=== PATIENT | female | born 1980 | race Caucasian/White ===

== ENCOUNTER 2017-01-16 18:24 | Emergency (ER) | payer OTHER ==
[2017-01-16 18:40] VITALS: BP 121/80
--- NOTE | 2017-01-16 18:45 | UC ---
Complaint Female HPI - HPI Summary HPI Summary: 36 year old female present for a test and vaginal bleeding. - History Of Current Complaint Chief Complaint: UCGU Stated Complaint: TESTING Time Seen by Provider: 01/16/17 18:45 Hx Obtained From: Patient Hx Last Menstrual Period: 12/26/16 Onset/Duration: Sudden Onset Severity Initially: Moderate Severity Currently: Moderate Pain Scale Used: 0-10 Numeric - 5 - Allergies/Home Medications Allergies/Adverse Reactions: Allergies Allergy/AdvReac Type Severity Reaction Status Date / Time No Known Allergies Allergy Verified 01/16/17 18:40 Home Medications: Home Medications Escitalopram Oxalate [Lexapro 20 mg] 20 mg PO DAILY 01/16/17 [History Confirmed 01/16/17] Naproxen Sodium [Naproxen Sodium 220 mg] 220 mg PO PRN 01/16/17 [History] PMH/Surg Hx/FS Hx/Imm Hx Previously Healthy: Yes - Surgical History Surgical History: None - Social History Alcohol Use: Weekly Substance Use Type: Marijuana Substance Use Comment - Amount & Last Used: occ usage Smoking Status (MU): Never Smoked Tobacco Review of Systems Constitutional: Negative Skin: Negative Eyes: Negative ENT: Negative Respiratory: Negative Cardiovascular: Negative Gastrointestinal: Negative Genitourinary: Abnormal Bleeding Motor: Negative Neurovascular: Negative Musculoskeletal: Negative Neurological: Negative Psychological: Negative All Other Systems Reviewed And Are Negative: Yes Physical Exam Triage Information Reviewed: Yes Vital Signs: Initial Vital Signs Temp 36.9 C 01/16/17 18:35 Pulse 79 01/16/17 18:35 Resp 14 01/16/17 18:35 BP 121/80 01/16/17 18:35 Pulse Ox 100 01/16/17 18:35 Eye Exam: Normal ENT Exam: Normal Dental Exam: Normal Neck exam: Normal Neck: Positive: 1 Respiratory Exam: Normal Cardiovascular Exam: Normal Abdominal Exam: Normal Musculoskeletal Exam: Normal Neurological Exam: Normal Psychological Exam: Normal Skin Exam: Normal Complaint Female Dx - Differential Dx/Diagnosis Provider Diagnoses: vaginal bleeding Discharge - Discharge Plan Condition: Stable Disposition: HOME Patient Education Materials: Ectopic (ED), Threatened Miscarriage (ED ), (ED) Referrals: No Primary Care Phys,NOPCP [Medical Doctor] -
== END 2017-01-16 19:07 | disposition home or self-care (01) ==
LOC: UCEAST 18:24
DX: N93.9 Abnormal uterine and vaginal bleeding, unspecified (principal); Z32.02 Encounter for pregnancy test, result negative
CPT/HCPCS: 81003; 84702; 99211; G0463

== ENCOUNTER 2017-06-24 08:51 | Emergency (ER) | payer OTHER ==
[2017-06-24 08:59] VITALS: BP 116/81
--- NOTE | 2017-06-24 10:20 | RAD ---
Indication: LEFT shoulder pain post fall yesterday. Comparison: June 03, 2014 chest radiograph. Technique: Internal rotation AP, external rotation Grashey, scapular Y, axillary views LEFT shoulder Report: Normal acromioclavicular and glenohumeral joint alignment. Negative for fracture. Preserved joint spaces. No compelling arthropathic change evident. Unremarkable soft tissue contours. IMPRESSION: No radiographic evidence for traumatic LEFT shoulder injury.
[2017-06-24] MEDS ORDERED: Naproxen TAB* 250 MG PO ONE (10:35)
--- NOTE | 2017-06-24 14:25 | UC ---
Lucas Escobedo Jennifer, scribed for Nikkie Fontanez MD on 06/24/17 at 1016 . Upper Extremity HPI - HPI Summary HPI Summary: The patient is a 37 year old female who presents with left shoulder pain that began yesterday. The patient reports she was kneeling when her son came to give her a tackle hug and she fell backwards onto her shoulder. The patient states she feels like she can move the shoulder in all directions. However, movement aggravates the pain. The pain is mostly concentrated in the front of the shoulder. Mild dysesthesia L fingers. - History of Current Complaint Chief Complaint: UCUpperExtremity Stated Complaint: SHOULDER INJURY Time Seen by Provider: 06/24/17 09:36 Hx Obtained From: Patient Hx Last Menstrual Period: iud Onset/Duration: Sudden Onset, Lasting Days - 1 day, Still Present Severity Initially: Moderate Severity Currently: Moderate Pain Intensity: 5 Pain Scale Used: 0-10 Numeric Location Of Pain: Is Discrete @ - left shoulder Aggravating Factor(s): Movement Alleviating Factor(s): Nothing Associated Signs And Symptoms: Positive: Numbness/Tingling - Left fingers - Allergies/Home Medications Allergies/Adverse Reactions: Allergies Allergy/AdvReac Type Severity Reaction Status Date / Time No Known Allergies Allergy Verified 06/24/17 08:58 PMH/Surg Hx/FS Hx/Imm Hx Previously Healthy: Yes - NEG: HTN, DM - Surgical History Surgical History: None - Family History Known Family History: Negative: Hypertension, Diabetes - Social History Alcohol Use: Weekly Substance Use Type: Marijuana Substance Use Comment - Amount & Last Used: occ usage Smoking Status (MU): Light Every Day Tobacco Smoker Review of Systems Constitutional: Negative Skin: Negative Eyes: Negative ENT: Negative Respiratory: Negative Cardiovascular: Negative Gastrointestinal: Negative Genitourinary: Negative Motor: Other - see hpi Neurovascular: Other - see hpi Musculoskeletal: Other: - Left shoulder pain see hpi Neurological: Other - see hpi All Other Systems Reviewed And Are Negative: Yes Physical Exam - Summary Physical Exam Summary: Appearance: Well-Nourished Eye Exam: Normal ENT Exam: Normal Respiratory Exam: Normal, no dyspnea, no tachypnea, normal respiratory rate Cardiovascular Exam: Normal Cardiovascular: Heart rate regular, good general skin color, good capillary refill Abdominal Exam: Normal Abdomen Description: Nontender, No Organomegaly, Soft Bowel Sounds: Present Musculoskeletal Exam: see below Neurological Exam: Normal: nonfocal, grossly intact Psychological Exam: Normal: conversing easily and appropriately Skin Exam: Normal: no visible or reported rash Triage Information Reviewed: Yes Vital Signs: Initial Vital Signs Temp 98.8 F 06/24/17 08:55 Pulse 104 06/24/17 08:55 Resp 18 06/24/17 08:55 BP 116/81 06/24/17 08:55 Pulse Ox 99 06/24/17 08:55 Vital Signs Reviewed: Yes Musculoskeletal Exam: Other - L ant shoulder tenderness, over the ac region, but general tenderness ant / post. + Ax N sensation present. Distal R/U pulse present. CR < 2 sec x 5 digits. Distal sensation LT present x 5 digits. Color good. Subjective tingling fingers during examination, improved with elevation. Able to move shoulder in all directions, but painful varinder with flexion past 90 degrees. Diagnostics - Radiology Shoulder XR Xray Interpretation: No Acute Changes - No radiographic evidence for traumatic LEFT shoulder injury. Dr. Fontanez has reviewed this report. Radiology Interpretation Completed By: Radiologist Re-Evaluation - Re-Evaluation First Eval Re-Evaluation Time: 10:33 Change: Unchanged Comment: The patient declined Naproxen. Upper Extremity Course/Dx - Course Course Of Treatment: Reviewed L shoulder xray with Ms. Humphrey. (No acute osseus injury, see [employer] report). Sling for comfort. She will f/u with orthopedist if sx no better by the end of this week, may need further imaging. Declines rx naproxen, but would appreciate naproxen here. - Differential Dx/Diagnosis Provider Diagnoses: Left shoulder injury, suspect ligament and / or tendon. Discharge - Discharge Plan Condition: Stable Disposition: HOME Patient Education Materials: Shoulder Sprain (ED), Arthralgia (ED) Referrals: Silvia Mendenhall MD [Primary Care Provider] - Jeremi Hutson MD [Medical Doctor] - Additional Instructions: Please follow up with your primary care provider, per routine. Orthopedic surgeon - 1-2 weeks. Sling as needed for comfort. Consider alleve as needed for pain / inflammation. Especially over the next 2-3 days. Seek medical attention for worse or new problems in the meantime. The documentation as recorded by the Lucas lopez Jennifer accurately reflects the service I personally performed and the decisions made by , Nikkie Fontanez MD.
== END 2017-06-24 10:41 | disposition home or self-care (01) ==
LOC: UCEAST 08:51
DX: S49.92XA Unspecified injury of left shoulder and upper arm, initial encounter (principal); W19.XXXA Unspecified fall, initial encounter; Y93.89 Activity, other specified; Y92.9 Unspecified place or not applicable; F17.200 Nicotine dependence, unspecified, uncomplicated
CPT/HCPCS: 99213; A9270-GY; G0463

== ENCOUNTER 2017-07-05 11:19 | Emergency (ER) | payer OTHER ==
[2017-07-05 11:28] VITALS: BP 111/76
--- NOTE | 2017-07-05 12:02 | UC ---
Throat Pain/Nasal [place] HPI - History of Current Complaint Hx Obtained From: Patient Hx Last Menstrual Period: iud ?: No Onset/Duration: Gradual Onset - started [address], body aches and fever. today sore throat worse and has swollen glands on neck Severity: Moderate Pain Intensity: 8 Associated Signs & Symptoms: Positive: Fever. Negative: Sinus Discomfort, Vomiting <Julianna Calvillo - Last Filed: 07/05/17 12:06> <Elida Bar - Last Filed: 07/05/17 12:54> - History of Current Complaint Chief Complaint: UCRespiratory Stated Complaint: FEVER,SORE THROAT Time Seen by Provider: 07/05/17 11:26 - Allergies/Home Medications Allergies/Adverse Reactions: Allergies Allergy/AdvReac Type Severity Reaction Status Date / Time No Known Allergies Allergy Verified 07/05/17 11:28 Home Medications: Home Medications Acetaminophen [Acetaminophen Extra Strength] 500 mg PO 07/05/17 [History] PMH/Surg Hx/FS Hx/Imm Hx Previously Healthy: Yes Psychological History: Depression - Surgical History Surgical History: None - Family History Known Family History: Negative: Hypertension, Diabetes - Social History Occupation: Employed Full-time Lives: With Family Alcohol Use: Weekly Substance Use Type: Marijuana Substance Use Comment - Amount & Last Used: occ usage Smoking Status (MU): Light Every Day Tobacco Smoker Cessation Counseling: Patient Advised to Stop <Julianna Calvillo - Last Filed: 07/05/17 12:06> Review of Systems Constitutional: Fever Skin: Negative Eyes: Negative ENT: Sore Throat Respiratory: Negative Cardiovascular: Negative Gastrointestinal: Negative All Other Systems Reviewed And Are Negative: Yes <Julianna Calvillo - Last Filed: 07/05/17 12:06> Physical Exam Triage Information Reviewed: Yes Appearance: Well-Appearing, No Pain Distress, Well-Nourished Vital Signs: Initial Vital Signs Temp 97.9 F 07/05/17 11:25 Pulse 79 07/05/17 11:25 Resp 18 07/05/17 11:25 BP 111/76 07/05/17 11:25 Pulse Ox 100 07/05/17 11:25 Vital Signs Reviewed: Yes ENT: Positive: Pharyngeal erythema, TMs normal. Negative: Nasal congestion, Sinus tenderness Neck: Positive: Enlarged Nodes @ - bilateral ant cervical Respiratory Exam: Normal Respiratory: Positive: Lungs clear Cardiovascular Exam: Normal Neurological Exam: Normal Psychological Exam: Normal Skin Exam: Normal Skin: Negative: rashes <Juilanna Calvillo - Last Filed: 07/05/17 12:06> Vital Signs: Initial Vital Signs Temp 97.9 F 07/05/17 11:25 Pulse 79 07/05/17 11:25 Resp 18 07/05/17 11:25 BP 111/76 07/05/17 11:25 Pulse Ox 100 07/05/17 11:25 <Elida Bar - Last Filed: 07/05/17 12:54> Throat Pain/Nasal Course/Dx - Differential Dx/Diagnosis Differential Diagnosis/HQI/PQRI: Influenza, Laryngitis, Pharyngitis, Sinusitis, Tonsillitis, URI Provider Diagnoses: strep throat <Julianna Calvillo - Last Filed: 07/05/17 12:06> Discharge - Sign-Out/Discharge Documenting (check all that apply): Discharge - Billing Disposition and Condition Condition: GOOD Disposition: HOME <Julianna Calvillo - Last Filed: 07/05/17 12:06> - Billing Disposition and Condition Condition: GOOD Disposition: HOME <Elida Bar - Last Filed: 07/05/17 12:54> - Discharge Plan Condition: Good Disposition: HOME Prescriptions: Azithromycin TAB* [Zithromax TAB (Z-JIHAN) 250 mg #6 tabs] 2 tab PO .TODAY, THEN 1 DAILY #1 jihan Escitalopram Oxalate [Lexapro 20 mg] 20 mg PO DAILY #30 tablet Patient Education Materials: Strep Throat (ED) Referrals: Silvia Mendenhall MD [Primary Care Provider] - 3 Days (if no better) Additional Instructions: drink plenty of fluids start antibiotic as directed ibuprofen 600-800mg every 8 hours as needed for pain and fever Attestation Statement User Type: Provider - I was available for consult. This patient was seen by the advanced practice provider. The patient was not presented to, seen by, or examined by me.-Destiny <Elida Bar - Last Filed: 07/05/17 12:54>
== END 2017-07-05 12:20 | disposition home or self-care (01) ==
LOC: UCEAST 11:19
DX: J02.0 Streptococcal pharyngitis (principal); F17.200 Nicotine dependence, unspecified, uncomplicated
CPT/HCPCS: 87651; 99212; G0463

== ENCOUNTER 2018-01-07 08:10 | Emergency (ER) | payer OTHER ==
--- NOTE | 2018-01-07 08:42 | UC ---
Complaint Female HPI - HPI Summary HPI Summary: This pt is a 37 y/o female presenting to [facility] c/o urinary symptoms for the past couple of days. She reports hematuria, dysuria, urinary frequency and urgency. Denies fever, nausea, vomiting, vaginal bleeding or discharge. Denies any PMHx. Pt is a current smoker. - History Of Current Complaint Stated Complaint: URINARY ISSUE SWOLLEN FINGER Time Seen by Provider: 01/07/18 08:11 Hx Obtained From: Patient Hx Last Menstrual Period: iud Onset/Duration: Lasting Days, Still Present Timing: Lasting Days Aggravating Factor(s): Nothing Alleviating Factor(s): Nothing Associated Signs And Symptoms: Negative: Fever, Vaginal Bleeding/Discharge, Vaginal Discharge, Nausea, Vomiting(# Of Episodes =) - Allergies/Home Medications Allergies/Adverse Reactions: Allergies Allergy/AdvReac Type Severity Reaction Status Date / Time No Known Allergies Allergy Verified 07/05/17 11:28 PMH/Surg Hx/FS Hx/Imm Hx Other Endocrine History: DENIES: diabetes Other Cardiovascular History: DENIES: HTN Psychological History: Depression - Surgical History Surgical History: None - Family History Known Family History: Negative: Hypertension, Diabetes - Social History Alcohol Use: Weekly Substance Use Type: Marijuana Substance Use Comment - Amount & Last Used: occ usage Smoking Status (MU): Light Every Day Tobacco Smoker Review of Systems Constitutional: Negative Skin: Negative Eyes: Negative ENT: Negative Respiratory: Negative Cardiovascular: Negative Gastrointestinal: Negative Genitourinary: Dysuria, Hematuria, Frequency, Urgency Motor: Negative Neurovascular: Negative Musculoskeletal: Negative Neurological: Negative Psychological: Negative All Other Systems Reviewed And Are Negative: Yes Physical Exam - Summary Physical Exam Summary: VITAL SIGNS: Reviewed. GENERAL: Patient is a well-developed and nourished female who is lying comfortable in the stretcher. Patient is not in any acute respiratory distress. HEAD AND FACE: Normocephalic EYES: PERRLA, EOMI x 2. EARS: Hearing grossly intact. MOUTH: Oropharynx within normal limits. NECK: Supple, trachea is midline, no adenopathy, no JVD, no carotid bruit. CHEST: Symmetric, no tenderness at palpation LUNGS: Clear to auscultation bilaterally. No wheezing or crackles. CVS: Regular rate and rhythm, S1 and S2 present, no murmurs or gallops appreciated. ABDOMEN: Soft, non-tender. Bowel sounds are normal. No abdominal abnormal pulsations. EXTREMITIES: Full ROM in all major joints, no edema, no cyanosis or clubbing. NEURO: Alert and oriented x 3. No acute neurological deficits. Speech is normal and follows commands. SKIN: Dry and warm Triage Information Reviewed: Yes Vital Signs Reviewed: Yes Complaint Female Dx - Course Course Of Treatment: This pt is a 37 y/o female presenting to [facility] c/o urinary symptoms for the past couple of days. She reports hematuria, dysuria, urinary frequency and urgency. Denies fever, nausea, vomiting, vaginal bleeding or discharge. Urinalysis positive for leukocytes. Therefore because of the symptoms and positive leukocytes I will give the patient several ciprofloxacin for 3 days. Patient is hemodynamically stable alert and oriented 3. - Differential Dx/Diagnosis Provider Diagnoses: UTI Discharge - Sign-Out/Discharge Documenting (check all that apply): Patient Departure - Discharge to home All imaging exams completed and their final reports reviewed: No Studies - Discharge Plan Condition: Stable Disposition: HOME Prescriptions: Ciprofloxacin TAB* [Cipro 250 MG Tab*] 250 mg PO BID #6 tab Patient Education Materials: Urinary Tract Infection in Women (ED) Referrals: Silvia Mendenhall MD [Primary Care Provider] - Additional Instructions: Take medications as instructed and adhere to plan Take Acetaminophen or ibuprofen for pain or fever Increase your fluid intake Return to the or go to the emergency department if symptoms worsen Follow-up with primary care physician in next 2-3 days - Billing Disposition and Condition Condition: STABLE Disposition: Home - Attestation Statements Document Initiated by Gustavoibe: Yes Documenting Scribe: Jennifer Osman Provider For Whom Eulalia is Documenting (Include Credential): Michael Herrera MD Scribe Attestation: Jennifer Escobedo, scribed for Michael Herrera MD on 01/07/18 at 0934. Scribe Documentation Reviewed: Yes Provider Attestation: The documentation as recorded by the Jennifer lopez accurately reflects the service I personally performed and the decisions made by , Michael Herrera MD
[2018-01-07 08:44] VITALS: BP 120/80
== END 2018-01-07 09:04 | disposition home or self-care (01) ==
LOC: UCEAST 08:10
DX: N39.0 Urinary tract infection, site not specified (principal); R31.9 Hematuria, unspecified; F17.200 Nicotine dependence, unspecified, uncomplicated
CPT/HCPCS: 81003; 84702; 87077; 87086; 87186; 99212; G0463